=== PATIENT | female | born 1995 | race Caucasian/White ===

== ENCOUNTER → 2018-02-21 | Outpatient (CLI) | payer OTHER ==
[~2018-02-21] MED LIST: BCPILLS PO; FLUO20CA34 PO
[2018-02-21 10:57] LABS: ALBUMIN 3.9 gm/dl (3.4-5.0); TOTAL PROTEIN 6.9 gm/dl (6.4-8.2)
--- NOTE | 2018-03-03 08:53 | CODING QUERY NO DIAGNOSIS ---
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 Please assist us with providing a diagnosis/symptom for the test(s) below: A diagnosis/symptom was not documented on your Order. A valid diagnosis/symptom is required to bill all insurances. Please remember that we are unable to code a diagnosis of rule out, probable, possible, questionable, or suspected. Tests that require a diagnosis: DOS: 02/21/18 (Attached order is missing diagnosis) * Bilirubin, total & direct DIAGNOSIS: * Liver profile DIAGNOSIS: Provider Signature: Date: Thank you Teena Childers Health Information Management Once completed, please kindly fax back to [phone] For questions please call [phone]
== END | disposition home or self-care (01) ==
LOC: C.LAB 09:50
PROVIDERS: ATTEND Podiatrist Foot & Ankle Surgery
DX: L60.3 Nail dystrophy (principal)

== ENCOUNTER 2025-06-19 07:46 | Inpatient (IN) ==
[2025-06-19] MEDS ORDERED: LIDOCAINE 1% LOCAL 20 ML VIAL INFIL PRN (08:40)
[2025-06-19] MEDS ORDERED: OXYTOCIN 30 UNITS/NSS 30 UNITS/500 ML BAG IV PRN (08:40)
[2025-06-19 09:14] LABS: Hematocrit (blood only) 32.4 % (37.0-47.0); Hemoglobin 11.6 g/dL (12.0-16.0); Mean Corpuscular Hemoglobin 32.0 pg (25.0-34.0); Mean Corpuscular Volume 89.5 fL (80.0-100.0); Platelet Count 217 K/uL (130-400); RDW Standard Deviation 38.7 fL (36.4-46.3); Red Blood Count 3.62 M/uL (4.20-5.40); White Blood Count 14.56 K/ul (4.8-10.8)
--- NOTE | 2025-06-19 10:06 | History & Physical Report ---
Date of Service June 19, 2025 Assessment & Plan Admission and Anticipated Discharge Date Admission Date: June 19, 2025 History of Present Illness Chief Complaint: induction of labor Primary Care Provider: Nicole Quijano PA-C 30 F P0000 at 40.5 with induction for post-dates. GBS is negative. c ourse is uneventful. Allergies Allergy/AdvReac Type Severity Reaction Status Date / Time hydrocodone AdvReac Severe Nausea Unverified 06/19/25 08:17 anesthesia AdvReac Severe Nausea Uncoded 06/19/25 08:17 Home Medications Medication Instructions Recorded Confirmed Type citalopram 20 mg tablet 30 mg PO HS 03/23/19 06/19/25 History montelukast 10 mg tablet 10 mg PO HS 03/23/19 06/19/25 History (Singulair) trazodone 150 mg tablet 50 mg PO HS 03/23/19 06/19/25 History doxylamine succinate 25 mg tablet 12.5 mg PO HS PRN sleep 06/19/25 06/19/25 History (Unisom (doxylamine)) Patient History Medical History Depression Anxiety Surgical History H/O breast augmentation H/O nasal septoplasty Social History Smoking Status: Never smoker Hx Alcohol Use: No Hx Substance Use: No Preferred Language: Latvian Communication Ability: Effective Visual Impairment: No Limitations Hearing Ability: Normal Lens Edger Required: No Beliefs That Will Affect Care: None marital status: Current Living Situation: Spouse Other Information That Helps Us Care for You: No Feels Safe at Home: Yes Safety Concerns: Feels Safe At This Time 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 History neg Review of Systems All systems reviewed & are unremarkable except as noted in HPI & below Physical Exam Constitutional: WD/WN, vitals as above Eyes: PERRL, conjunctivae normal, anicteric sclerae Respiratory: normal respiratory effort Cardiovascular: Rate/Rhythm: regular rate and regular rhythm Gastrointestinal (Abdomen): Inspection/Auscultation: abdomen normal to inspection fundus term no pain Musculoskeletal: Extremities: extremities normal to inspection Skin: no rashes, warm and dry no edema Neurologic: patellar DTR's 2+ bilat, sensation intact Psychiatric: A+Ox3, euthymic affect Genitourinary: Manual OB Exam: + cervical dilation fingertip, + cervical effacement 50% and + station high OB Exam Monitor Tracing: + external FHT monitor used, + external uterine monitor used, + category I and + normal FHT variability Cervix posterior/firm EFW 8.5 lbs. Cervidil placed for ripening after discussion with patient Results & Data Vital Signs (Past 12 Hours) Vital Signs Temp Pulse Resp BP 06/19/25 08:04 36.9 C 81 20 121/75 Code Status & VTE Plan VTE Prophylaxis Plan VTE Prophylaxis will be ordered: No Monitoring External Monitor Cat 1
[2025-06-19] MEDS: DINOPROSTONE 10 MG INSERT PV ONE (10:21)
[2025-06-19] MEDS: ACETAMINOPHEN 325 MG TAB PO PRN (18:59)
[2025-06-19] MEDS: LACTATED RINGER'S 1,000 ML IV PRN (19:38)
[2025-06-19] MEDS: BUTORPHANOL TARTRATE 1 MG/ML VIAL IV PRN (20:53)
[2025-06-19] MEDS: ONDANSETRON INJ 2 MG/ML 2 ML VIAL IV PRN (21:25)
--- NOTE | 2025-06-19 22:09 | Labor Progress Brief Note ---
Date of Service June 19, 2025 Assessment & Plan Admission and Anticipated Discharge Date Admission Date: June 19, 2025 Physical Exam Genitourinary: Manual OB Exam: + cervical dilation 2 cm, + cervical effacement 70% and + station high OB Exam Monitor Tracing: + external FHT monitor used, + external uterine monitor used, + category I and + normal FHT variability Cervidil removed plan for epidural then either Cytotec or Oxytocin Results & Data Vital Signs (Past 12 Hours) Vital Signs Temp Pulse Resp BP 06/19/25 19:10 36.8 C 18 06/19/25 19:10 18 06/19/25 19:10 36.8 C 18 06/19/25 19:03 77 06/19/25 19:03 136/83 06/19/25 15:06 20 06/19/25 15:06 37.0 C 20 06/19/25 15:06 76 06/19/25 15:06 117/62 06/19/25 11:55 75 06/19/25 11:55 130/80 06/19/25 11:54 19 06/19/25 11:54 36.9 C 19
[2025-06-20] MEDS: OXYTOCIN 30 UNITS/NSS 30 UNITS/500 ML BAG IV PRN (00:09)
[2025-06-20] MEDS: ZOLPIDEM TARTRATE 5 MG TAB PO ONE (01:10)
[2025-06-20] MEDS ORDERED: Nursing to Pharmacy Communication SCH (10:45)
--- NOTE | 2025-06-20 12:02 | Anesthesiology Consultation ---
Date of Service June 20, 2025 Assessment & Plan Chart Review Chart Review: Acceptable Risk for Surgery and Patient NOT seen in Pre Admission Testing Consults Requested none ASA ASA2 Proposed Anesthesia Anesthesia Type: Labor Epidural and CSE Risk / Benefits Reviewed With: PT / POA / Parent / Guardian, Accepts Plan and Informed Consent Obtained History Height/Weight Height: 5 ft 3 in Weight: 83.007 kg Allergies Allergy/AdvReac Type Severity Reaction Status Date / Time hydrocodone AdvReac Severe Nausea Unverified 06/19/25 08:17 anesthesia AdvReac Severe Nausea Uncoded 06/19/25 08:17 Medications Home Medications Medication Instructions Recorded Confirmed Last Taken citalopram 20 mg tablet 30 mg PO HS 03/23/19 06/19/25 06/18/25 21:00 montelukast 10 mg tablet 10 mg PO HS 03/23/19 06/19/25 03/22/19 (Singulair) trazodone 150 mg tablet 50 mg PO HS 03/23/19 06/19/25 06/18/25 21:00 doxylamine succinate 25 mg tablet 12.5 mg PO HS PRN sleep 06/19/25 06/19/25 06/18/25 21:00 (Unisom (doxylamine)) Active Medications Generic Name Dose Route Start Last Admin Trade Name Freq PRN Reason Stop Dose Admin Acetaminophen 650 mg 06/19/25 18:46 06/19/25 18:59 Acetaminophen 325 Mg Tab PO 07/19/25 18:45 650 mg Q4H PRN Administration Pain Butorphanol Tartrate 1 mg 06/19/25 20:39 06/19/25 20:53 Butorphanol Tartrate 1 Mg/Ml Vial IV 07/19/25 20:38 1 mg Q2HWA PRN Administration Pain Lactated Ringer's 1,000 mls @ 125 mls/hr 06/19/25 08:40 06/20/25 11:42 Lr IV 06/21/25 08:39 999 mls/hr .Q8H PRN Administration L&D Protocol Protocol Oxytocin 30 units in 500 mls @ 21 mls/hr 06/19/25 23:19 06/20/25 10:30 Pitocin 30 Units/Nss IV 06/21/25 23:18 1.26 units/hr .[id number] PRN 21 mls/hr Labor Induction/Augmentation Titration Protocol 1.26 UNITS/HR Ondansetron HCl 4 mg 06/19/25 21:15 06/19/25 21:25 Ondansetron Inj 2 Mg/Ml 2 Ml Vial IV 07/19/25 21:14 4 mg Q6H PRN Administration Nausea And Vomiting NPO Date Last Intake of Fluids: 06/20/25 Time Last Intake of Fluids: 11:00 Date Last Intake of Solids: 06/19/25 Time Last Intake of Solids: 18:00 Past Medical History Medical History Depression Anxiety Exercise / Class Metabolic Activity II 4-5 Yardwork/Stairs/Walk up hill Past Surgical History Surgical History H/O breast augmentation H/O nasal septoplasty Past Anesthesia History No Hx of Anesthesia Complications and No Family Hx of Anesthesia Complications History of PONV No Hx of PONV and No Hx of Motion Sickness Social History Smoking Status: Never smoker Hx Alcohol Use: No Hx Substance Use: No Physical Exam Vital Signs Last Vital Signs Temp 36.9 C 06/20/25 11:02 Pulse 75 06/20/25 11:56 Resp 19 06/20/25 11:02 BP 124/77 06/20/25 11:03 Pulse Ox 98 06/20/25 11:56 Constitutional + obese; no acute distress ENMT Mouth: no dentition abnormality Thyromental Distance: < 3.5 Finger Breadths Mallampati Class: II Neck normal visual inspection and trachea midline; neck extension not limited Respiratory normal respiratory effort Auscultation: lungs clear to auscultation bilaterally Cardiovascular Rate/Rhythm: regular rate and regular rhythm Heart Sounds: no murmur Vessels: no carotid bruit Musculoskeletal Spine: lumbar spine normal to inspection; normal cervical ROM and no pain with cervical ROM Extremities: full ROM of extremities Neurologic moves all extremities Motor/Sensory: no sensory deficit Psychiatric Orientation: alert and oriented x 3 Testing Laboratory Results 06/19/25 08:57
[2025-06-20] MEDS ORDERED: NALOXONE HCL 0.4 MG/1 ML VIAL/CARP IV PRN (12:49)
[2025-06-20] MEDS ORDERED: ROPIVACAINE 0.5% PF 5 MG/ML 20 ML VIAL EPI PRN (12:49)
[2025-06-20] MEDS ORDERED: BUPIVACAINE 0.25% PF 30 ML VIAL EPI PRN (12:49)
[2025-06-20] MEDS ORDERED: PROMETHAZINE 6.25 MG/50.25 ML BAG IV PRN (12:49)
[2025-06-20] MEDS ORDERED: LIDOCAINE 2% MPF LOCAL 5 ML VIAL EPI PRN (12:49)
[2025-06-20] MEDS ORDERED: diphenhydrAMINE 50 MG/ML VIAL IV PRN (12:49)
[2025-06-20] MEDS: LIDOCAINE 2%/EPINEPHRINE 1:200,000 20 ML PF ONE (12:49)
[2025-06-20] MEDS: BUPIVACAINE 0.25% PF 30 ML VIAL ONE (12:49)
[2025-06-20] MEDS ORDERED: NALOXONE HCL 1 MG in SODIUM CHLORIDE 0.9% 1,000 ML IV PRN (12:49)
[2025-06-20] MEDS ORDERED: SODIUM CHLORIDE 0.9% PF INJ 10 ML VIAL EPI PRN (12:49)
[2025-06-20] MEDS ORDERED: NALBUPHINE HCL INJ 10 MG/ML AMP IV PRN (12:49)
[2025-06-20] MEDS: fentANYL 2 MCG/ML BUPIVacaine 0.125%-NSS 100ML BAG ONE (12:51)
[2025-06-20] MEDS: SODIUM CHLORIDE 0.9% PF INJ 10 ML VIAL ONE (12:52)
[2025-06-20] MEDS: ONDANSETRON INJ 2 MG/ML 2 ML VIAL IV PRN (14:04)
[2025-06-20] MEDS: BUPIVACAINE 0.25% PF 30 ML VIAL EPI STA (20:07)
[2025-06-20] MEDS: LIDOCAINE 2%/EPINEPHRINE 1:200,000 20 ML PF EPI STA (20:08)
[2025-06-20] MEDS: SODIUM CHLORIDE 0.9% PF INJ 10 ML VIAL EPI STA (20:08)
[2025-06-20] MEDS: fentANYL 2 MCG/ML BUPIVacaine 0.125%-NSS 100ML BAG EPI PRN (20:30)
[2025-06-21] MEDS ORDERED: MoRPHine SULFATE PF 1 MG/ML 10 ML AMP/VIAL ONE (01:17)
[2025-06-21] MEDS ORDERED: LIDOCAINE 2%/EPINEPHRINE 1:200,000 20 ML PF ONE (01:17)
[2025-06-21] MEDS: cefOXitin 2,000 MG in DEXTROSE 5 % MINI-B 50 ML IV SCH (01:25)
[2025-06-21] MEDS ORDERED: PHENYLEPHRINE 100MCG/ML 5ML SYR ONE (01:29)
[2025-06-21] MEDS ORDERED: SODIUM BICARB 8.4% INJ 50 MEQ/50 ML SYR IV ONE (01:29)
[2025-06-21] MEDS ORDERED: DEXAMETHASONE SOD INJ 4 MG/ML VIAL ONE (01:29)
[2025-06-21] MEDS ORDERED: ONDANSETRON INJ 2 MG/ML 2 ML VIAL ONE (01:29)
--- NOTE | 2025-06-21 01:29 | History & Physical Report ---
Date of Service June 21, 2025 Assessment & Plan (1) Macrosomia affecting management of mother in third trimester, single gestation: Plan: delivery Admission and Anticipated Discharge Date Admission Date: June 19, 2025 History of Present Illness Chief Complaint: Intrauterine 41 weeks gestation Macrosomia Failed induction of labor Cephalopelvic disproportion Primary Care Provider: Nicole Quijano PA-C Patient is a 30-year-old 1 para 0. Followed in the office for care and delivery. Well dated with a first trimester ultrasound. Her due date is 06/14/2025. She had a history of anemia during her which was treated with iron infusion. She was ultrasounded at 36 weeks gestation and at that time they gave her an estimated weight of 7 pounds 10 ounces. Brought in for induction of labor due to her being postterm. She first had a Cervidil tape. Followed by IV Pitocin. She was about 4 cm dilated she received epidural for pain control. Membranes then ruptured spontaneously. Fluid was clear. She was augmented with IV Pitocin and increasing the dose to get a regular contraction pattern. She had a an anterior cervical lip for which we let her labor for about 5 hours to clear. She then pushed for over 2 hours. Was unable to even get the head into the mid pelvis. At the time of her C- section the station is a -2 to -3. Large amount of molding. Allergies Allergy/AdvReac Type Severity Reaction Status Date / Time hydrocodone AdvReac Severe Nausea Unverified 06/19/25 08:17 anesthesia AdvReac Severe Nausea Uncoded 06/19/25 08:17 Home Medications Medication Instructions Recorded Confirmed Type citalopram 20 mg tablet 30 mg PO HS 03/23/19 06/19/25 History montelukast 10 mg tablet 10 mg PO HS 03/23/19 06/19/25 History (Singulair) trazodone 150 mg tablet 50 mg PO HS 03/23/19 06/19/25 History doxylamine succinate 25 mg tablet 12.5 mg PO HS PRN sleep 06/19/25 06/19/25 History (Unisom (doxylamine)) Past Med/Surg History Problem List (Updated 06/21/25 @ 01:28 by Vidal Malagon MD) Macrosomia affecting management of mother in third trimester, single gestation Medical History Depression Anxiety Surgical History H/O breast augmentation H/O nasal septoplasty Social History Smoking Status: Never smoker Hx Alcohol Use: No Hx Substance Use: No Preferred Language: Serbian Communication Ability: Effective Visual Impairment: No Limitations Hearing Ability: Normal Production Operator Required: No Beliefs That Will Affect Care: None marital status: Current Living Situation: Spouse Other Information That Helps Us Care for You: No Feels Safe at Home: Yes Safety Concerns: Feels Safe At This Time Physical Exam Physical Exam: Patient appeared to be well-developed well-nourished 30-year-old white female alert oriented x 3 operative. Her stated age in a moderate amount of distress. Heart had a regular rhythm S1 and S2 were normal. Lungs are clear to auscultation percussion. Trachea was midline there is no cervical adenopathy. Both breasts are status post augmentation. Abdomen revealed a large gravid uterus with an estimated weight of well over 8 pounds. There was no CVA tenderness. Pelvic exam revealed a large amount of molding station was -2 to - 3. Vertex presentation. No calf tenderness. Results & Data Results & Data Vital Signs (Past 12 Hours) Vital Signs Temp Pulse Resp BP Pulse Ox 06/21/25 01:21 109 H 87 L 06/21/25 01:18 100 H 91 06/21/25 01:13 90 98 06/21/25 01:12 83 123/75 06/21/25 01:10 89 83 L 06/21/25 01:08 80 97 06/21/25 01:03 75 74 L 06/21/25 01:02 76 79 L 06/21/25 00:58 80 96 06/21/25 00:57 72 130/77 06/21/25 00:53 85 96 06/21/25 00:49 88 86 L 06/21/25 00:48 86 98 06/21/25 00:43 89 95 06/21/25 00:42 86 82 L 06/21/25 00:38 87 97 06/21/25 00:35 90 81 L 06/21/25 00:33 88 98 06/21/25 00:32 90 134/78 06/21/25 00:27 84 97 06/21/25 00:22 82 97 06/21/25 00:17 94 H 99 06/21/25 00:12 90 99 06/21/25 00:10 85 89 L 06/21/25 00:07 87 98 06/21/25 00:06 90 127/73 06/21/25 00:04 98 H 90 06/21/25 00:02 92 H 73 L 06/20/25 23:58 94 H 90 06/20/25 23:57 90 98 06/20/25 23:52 113 H 83 L 06/20/25 23:49 104 H 87 L 06/20/25 23:47 104 H 94 06/20/25 23:44 89 89 L 06/20/25 23:42 104 H 96 06/20/25 23:37 82 73 L 06/20/25 23:32 100 H 98 06/20/25 23:31 89 81 L 06/20/25 23:27 92 H 96 06/20/25 23:26 89 87 L 06/20/25 23:22 83 98 06/20/25 23:20 87 87 L 06/20/25 23:17 78 100 06/20/25 23:12 72 100 06/20/25 23:11 69 139/84 06/20/25 23:07 71 100 06/20/25 23:03 72 89 L 06/20/25 23:02 71 100 06/20/25 22:57 78 92 06/20/25 22:56 71 136/77 06/20/25 22:52 74 98 06/20/25 22:50 37.0 C 06/20/25 22:47 72 99 06/20/25 22:42 83 94 06/20/25 22:40 88 93 06/20/25 22:37 69 99 06/20/25 22:32 74 100 06/20/25 22:28 76 92 06/20/25 22:27 74 97 06/20/25 22:26 70 142/83 H 06/20/25 22:22 73 99 06/20/25 22:19 75 93 06/20/25 22:17 70 100 06/20/25 22:12 70 94 06/20/25 22:11 67 117/70 06/20/25 22:07 66 100 06/20/25 22:06 67 92 06/20/25 22:02 70 99 06/20/25 21:57 69 100 06/20/25 21:56 69 120/63 06/20/25 21:52 70 98 06/20/25 21:50 72 90 06/20/25 21:47 69 100 06/20/25 21:45 71 91 06/20/25 21:42 68 100 06/20/25 21:41 66 129/79 06/20/25 21:37 74 97 06/20/25 21:34 80 87 L 06/20/25 21:32 73 93 06/20/25 21:28 76 92 06/20/25 21:27 73 100 06/20/25 21:26 73 137/74 06/20/25 21:23 79 94 06/20/25 21:22 74 95 06/20/25 21:17 73 100 06/20/25 21:12 75 100 06/20/25 21:11 74 138/82 06/20/25 21:07 75 100 06/20/25 21:06 80 90 06/20/25 21:02 77 99 06/20/25 20:57 79 121/77 92 06/20/25 20:52 66 98 06/20/25 20:47 65 98 06/20/25 20:43 69 91 06/20/25 20:42 63 114/62 98 06/20/25 20:37 65 99 06/20/25 20:32 67 100 06/20/25 20:30 36.9 C 06/20/25 20:27 79 118/62 100 06/20/25 20:22 72 97 06/20/25 20:21 72 94 06/20/25 20:17 70 97 06/20/25 20:13 68 124/79 06/20/25 20:12 72 97 06/20/25 20:07 74 93 06/20/25 20:02 71 98 06/20/25 19:57 75 134/78 98 06/20/25 19:53 85 93 06/20/25 19:52 73 100 06/20/25 19:47 79 99 06/20/25 19:46 72 94 06/20/25 19:42 81 99 06/20/25 19:41 74 132/79 06/20/25 19:37 79 99 06/20/25 19:32 83 91 06/20/25 19:27 68 100 06/20/25 19:26 72 112/62 06/20/25 19:22 69 99 06/20/25 19:17 68 100 06/20/25 19:12 66 100 06/20/25 19:11 63 115/65 06/20/25 19:07 70 100 06/20/25 19:02 71 100 06/20/25 19:00 36.8 C 20 06/20/25 18:57 76 100 06/20/25 18:56 71 137/84 06/20/25 18:53 73 92 06/20/25 18:52 68 96 06/20/25 18:47 73 100 06/20/25 18:44 73 90 06/20/25 18:42 68 100 06/20/25 18:41 72 128/83 06/20/25 18:37 76 97 06/20/25 18:34 88 92 06/20/25 18:32 92 H 100 06/20/25 18:30 18 06/20/25 18:30 18 06/20/25 18:27 73 127/74 100 06/20/25 18:22 75 99 06/20/25 18:17 79 98 06/20/25 18:14 77 93 06/20/25 18:12 77 132/78 100 06/20/25 18:08 88 94 06/20/25 18:07 80 100 06/20/25 18:02 84 100 06/20/25 18:01 83 91 06/20/25 17:59 19 06/20/25 17:59 19 06/20/25 17:58 62 20 125/72 06/20/25 17:57 63 100 06/20/25 17:52 71 100 06/20/25 17:48 71 92 06/20/25 17:47 73 100 06/20/25 17:42 68 100 06/20/25 17:41 64 121/62 06/20/25 17:37 67 100 06/20/25 17:36 64 91 06/20/25 17:32 72 100 06/20/25 17:30 18 06/20/25 17:30 18 06/20/25 17:27 67 100 06/20/25 17:26 62 121/66 06/20/25 17:22 65 100 06/20/25 17:17 69 96 06/20/25 17:12 64 96 06/20/25 17:11 64 125/68 06/20/25 17:07 74 100 06/20/25 17:05 36.7 C 20 06/20/25 17:02 69 100 06/20/25 16:58 64 91 06/20/25 16:57 65 100 06/20/25 16:56 62 121/80 06/20/25 16:52 65 97 06/20/25 16:50 68 93 06/20/25 16:47 63 100 06/20/25 16:43 66 93 06/20/25 16:42 63 100 06/20/25 16:41 61 120/75 06/20/25 16:37 69 84 L 06/20/25 16:32 67 99 06/20/25 16:30 18 06/20/25 16:30 18 06/20/25 16:27 75 97 06/20/25 16:26 148 H 116/59 L 06/20/25 16:22 65 100 06/20/25 16:19 68 91 06/20/25 16:17 65 100 06/20/25 16:12 65 98 06/20/25 16:11 65 111/64 06/20/25 16:07 70 95 06/20/25 16:02 67 98 06/20/25 15:59 19 06/20/25 15:59 19 06/20/25 15:57 63 106/58 L 97 06/20/25 15:52 64 96 06/20/25 15:47 74 98 06/20/25 15:42 65 98 06/20/25 15:41 62 115/64 06/20/25 15:37 67 98 06/20/25 15:32 65 99 06/20/25 15:29 20 06/20/25 15:29 20 06/20/25 15:29 19 06/20/25 15:29 19 06/20/25 15:27 71 100 06/20/25 15:26 64 105/62 06/20/25 15:22 64 98 06/20/25 15:17 63 99 06/20/25 15:12 67 98 06/20/25 15:11 61 110/55 L 06/20/25 15:07 65 98 06/20/25 15:02 72 97 06/20/25 14:59 36.9 C 71 19 93 06/20/25 14:57 66 97 06/20/25 14:56 66 120/58 L 06/20/25 14:52 65 99 06/20/25 14:47 67 98 06/20/25 14:42 66 120/75 97 06/20/25 14:37 69 98 06/20/25 14:32 70 97 06/20/25 14:30 19 06/20/25 14:27 63 124/77 97 06/20/25 14:22 68 98 06/20/25 14:17 68 98 06/20/25 14:13 66 125/77 06/20/25 14:12 62 98 06/20/25 14:07 68 97 06/20/25 14:02 66 98 06/20/25 13:59 19 06/20/25 13:59 19 06/20/25 13:58 73 93 06/20/25 13:57 71 97 06/20/25 13:56 68 111/67 06/20/25 13:52 66 98 06/20/25 13:47 67 97 06/20/25 13:42 66 98 06/20/25 13:41 66 111/64 06/20/25 13:37 74 98 06/20/25 13:32 69 98 06/20/25 13:30 20 06/20/25 13:30 20 06/20/25 13:27 67 98 06/20/25 13:24 66 114/65 Code Status & VTE Plan VTE Prophylaxis Plan VTE Prophylaxis will be ordered: No
[2025-06-21] MEDS ORDERED: OXYTOCIN 10 UNITS/ML VIAL ONE ×2 (01:30→02:21)
[2025-06-21 02:01] LABS: Hematocrit (blood only) 34.0 % (37.0-47.0); Hemoglobin 11.9 g/dL (12.0-16.0); Mean Corpuscular Hemoglobin 31.8 pg (25.0-34.0); Mean Corpuscular Volume 90.9 fL (80.0-100.0); Platelet Count 180 K/uL (130-400); RDW Standard Deviation 39.6 fL (36.4-46.3); Red Blood Count 3.74 M/uL (4.20-5.40); White Blood Count 23.45 K/ul (4.8-10.8)
[2025-06-21] MEDS ORDERED: PROMETHAZINE HCL INJ 25 MG/ML 1 ML VIAL ONE (02:14)
[2025-06-21] MEDS ORDERED: PHENYLEPHRINE HCL 10 MG/ML VIAL ONE (02:28)
[2025-06-21] MEDS ORDERED: LACTATED RINGER'S 1,000 ML IV SCH (02:30)
[2025-06-21] MEDS ORDERED: LACTATED RINGER'S 500 ML IV PRN (02:32)
[2025-06-21] MEDS ORDERED: diphenhydrAMINE 50 MG/ML VIAL IV PRN ×2 (02:32→20:32)
[2025-06-21] MEDS ORDERED: ONDANSETRON INJ 2 MG/ML 2 ML VIAL IV PRN ×2 (02:32→20:32)
[2025-06-21] MEDS ORDERED: NALBUPHINE HCL INJ 10 MG/ML AMP IV PRN (02:32)
[2025-06-21] MEDS ORDERED: HYDROmorphone INJ 0.5 MG/0.5 ML SYR IV PRN ×2 (02:32→20:32)
[2025-06-21] MEDS ORDERED: NALOXONE HCL 0.4 MG/1 ML VIAL/CARP IV PRN (02:32)
[2025-06-21] MEDS ORDERED: PROMETHAZINE 6.25 MG/50.25 ML BAG IV PRN (02:32)
[2025-06-21] MEDS ORDERED: NALOXONE HCL 1 MG in SODIUM CHLORIDE 0.9% 1,000 ML IV PRN (02:32)
[2025-06-21] MEDS ORDERED: KETOROLAC 30 MG/ML VIAL ONE (02:43)
[2025-06-21] MEDS ORDERED: NO NARCOTICS OR SEDATIVES SCH (02:45)
[2025-06-21] MEDS ORDERED: DC INTRASPINAL MORPHINE SCH (02:45)
[2025-06-21] MEDS ORDERED: SENNA 8.6 MG TAB PO PRN (03:04)
[2025-06-21] MEDS ORDERED: BENZOCAINE 20% SPRY 85 APPLN/85 GM CAN EXT PRN (03:04)
[2025-06-21] MEDS ORDERED: MAGNESIUM HYDROXIDE SUSP 30 ML UDC PO PRN (03:04)
[2025-06-21] MEDS ORDERED: CALCIUM CARBONATE 500 MG CHEWABLE TAB PO PRN (03:04)
[2025-06-21] MEDS ORDERED: HYDROCORTISONE ACETATE 25 MG SUPP PR PRN (03:04)
--- NOTE | 2025-06-21 03:13 | Anesthesia Procedure Note ---
Date of Service June 21, 2025 Anesthesia Post Epidural Note Vital Signs Vital Signs: Temp Pulse Resp BP Pulse Ox 98.6 F 69 20 95/46 L 91 06/20/25 22:50 06/21/25 03:12 06/20/25 19:00 06/21/25 03:09 06/21/25 03:12 Pain Intensity Abdomen: Pain Intensity: 2 Notes Mental Status: alert / awake / arousable and participated in evaluation Nausea / Vomiting: adequately controlled Pain: adequately controlled Airway Patency, RR, SpO2: stable & adequate BP & HR: stable & adequate Hydration State: stable & adequate Neuraxial Anesthesia: was administered and sensory block is resolving Anesthetic Complications: no major complications apparent and Pt Satisfied with anesthetic care Epidural: Removed without complications and With tip intact
--- NOTE | 2025-06-21 03:14 | Operative Report ---
Post Operative Report Pre & Post Diagnosis Operation Date: 06/21/25 01:30 Pre-Op Diagnosis: 1.) Arrest of Labor 2.) Cephalopelvic Disproportion Post-Op Diagnosis: Same as pre op I identified the patient and participated in the time-out.: Yes Procedure Operation Date: 06/21/25 01:30 Actual Procedures p Primary Section for the of a live male child at 0216. 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 Catheter was reinserted and connected to gravity drainage. Lower abdomen was painted with an alcohol-based sterilizing solution. Epidural was topped off. After draping the patient in usual sterile fashion the level anesthesia was checked and found to be adequate. Pfannenstiel incision was made and carried down to the anterior fascia by sharp dissection. Hemostasis was secured by electrocauterization. Fascia was incised transversely from the underlying muscle by blunt and sharp dissection. Recti muscles were in the midline. Peritoneum was carefully raised and entered. A bladder retractor was used to expose the lower uterine segment. The peritoneum on the uterus was incised and the incision was carried out laterally. Bladder was undermined bluntly and pushed out of the operative field. Lower uterine segment was scored with a knife and then entered bluntly with the scissors. Amniotic fluid was slightly meconium stained. Operators hand was inserted into the uterine cavity and then into the pelvis. I grasped the head started to pull it out of the pelvis. I tried using a pectus retractor. However the head then turned sideways. I remove the pectus retractor we inserted my hand and was able to deliver the vertex through the incision. With fundal pressure the 's arms abdomen and then legs were removed without difficulty. Cord was allowed to pulse for 1 minute. Cord was then clamped. was handed off to the fig caprifier who is scrubbed and present at the time of the delivery. Cord blood was taken. Placenta was removed manually. Uterus tubes and ovaries were brought out through the incision. The extent of the lower uterine defect was delineated with 4 ring forceps. The muscular layer was then approximated with a continuous interlocking suture of heavy chromic gut suture. Then a horizontal suture of heavy Vicryl was approximated over this to approximate the fascial layer over the approximated muscular layer 1 interrupted [id number] suture of Vicryl was placed on the left side to complete the hemostasis. Peritoneal edges were then restored with a continuous plain suture and this restored the integrity of the vesicouterine fold. Uterus was cleansed of all blood clots and debris. Tubes and ovaries were inspected found to be normal. Uterus tubes and ovaries were reinserted into the abdominal cavity. Careful anatomical approximation of the anterior abdominal wall was performed. Peritoneum was closed with continuous Chromic Gut suture. Recti muscles were approximated with interrupted [id number] suture chromic catgut. Fascia was closed with a continuous interlocking suture of heavy Vicryl on each side and run to the middle. The subcutaneous tissue was cleansed with saline then approximated with a running plain. Skin edges were approximated with staple clips. Patient tolerated procedure well. Quantitative blood loss was 930 mL I attest to the content of the Intraoperative Record and any orders documented therein. Any exceptions are noted below.
--- NOTE | 2025-06-21 03:30 | Anesthesiology Progress Note ---
Date of Service June 21, 2025 Anesthesia Post Procedure Vital Signs Vital Signs: Temp Pulse Resp BP Pulse Ox 06/21/25 03:27 65 98 06/21/25 03:22 66 98 06/21/25 03:20 12 06/21/25 03:20 64 95/47 L 06/21/25 03:17 67 100 06/21/25 03:15 70 87/43 L 06/21/25 03:12 69 91 06/21/25 03:10 99.0 F 14 06/21/25 03:09 67 95/46 L 06/21/25 01:48 85 96 06/21/25 01:43 81 96 06/21/25 01:42 77 113/67 06/21/25 01:38 83 96 06/21/25 01:33 88 94 06/21/25 01:28 86 98 06/21/25 01:26 90 125/75 06/21/25 01:23 95 H 91 06/21/25 01:21 109 H 87 L 06/21/25 01:18 100 H 91 06/21/25 01:13 90 98 06/21/25 01:12 83 123/75 06/21/25 01:10 89 83 L 06/21/25 01:08 80 97 06/21/25 01:03 75 74 L 06/21/25 01:02 76 79 L 06/21/25 00:58 80 96 06/21/25 00:57 72 130/77 06/21/25 00:53 85 96 06/21/25 00:49 88 86 L 06/21/25 00:48 86 98 06/21/25 00:43 89 95 06/21/25 00:42 86 82 L 06/21/25 00:38 87 97 06/21/25 00:35 90 81 L 06/21/25 00:33 88 98 06/21/25 00:32 90 134/78 06/21/25 00:27 84 97 06/21/25 00:22 82 97 06/21/25 00:17 94 H 99 06/21/25 00:12 90 99 06/21/25 00:10 85 89 L 06/21/25 00:07 87 98 06/21/25 00:06 90 127/73 06/21/25 00:04 98 H 90 06/21/25 00:02 92 H 73 L 06/20/25 23:58 94 H 90 06/20/25 23:57 90 98 06/20/25 23:52 113 H 83 L 06/20/25 23:49 104 H 87 L 06/20/25 23:47 104 H 94 06/20/25 23:44 89 89 L 06/20/25 23:42 104 H 96 06/20/25 23:37 82 73 L 06/20/25 23:32 100 H 98 06/20/25 23:31 89 81 L 06/20/25 23:27 92 H 96 06/20/25 23:26 89 87 L 06/20/25 23:22 83 98 06/20/25 23:20 87 87 L 06/20/25 23:17 78 100 06/20/25 23:12 72 100 06/20/25 23:11 69 139/84 06/20/25 23:07 71 100 06/20/25 23:03 72 89 L 06/20/25 23:02 71 100 06/20/25 22:57 78 92 06/20/25 22:56 71 136/77 06/20/25 22:52 74 98 06/20/25 22:50 98.6 F 06/20/25 22:47 72 99 06/20/25 22:42 83 94 06/20/25 22:40 88 93 06/20/25 22:37 69 99 06/20/25 22:32 74 100 06/20/25 22:28 76 92 06/20/25 22:27 74 97 06/20/25 22:26 70 142/83 H 06/20/25 22:22 73 99 06/20/25 22:19 75 93 06/20/25 22:17 70 100 06/20/25 22:12 70 94 06/20/25 22:11 67 117/70 06/20/25 22:07 66 100 06/20/25 22:06 67 92 06/20/25 22:02 70 99 06/20/25 21:57 69 100 06/20/25 21:56 69 120/63 06/20/25 21:52 70 98 06/20/25 21:50 72 90 06/20/25 21:47 69 100 06/20/25 21:45 71 91 06/20/25 21:42 68 100 06/20/25 21:41 66 129/79 06/20/25 21:37 74 97 06/20/25 21:34 80 87 L 06/20/25 21:32 73 93 06/20/25 21:28 76 92 06/20/25 21:27 73 100 06/20/25 21:26 73 137/74 06/20/25 21:23 79 94 06/20/25 21:22 74 95 06/20/25 21:17 73 100 06/20/25 21:12 75 100 06/20/25 21:11 74 138/82 06/20/25 21:07 75 100 06/20/25 21:06 80 90 06/20/25 21:02 77 99 06/20/25 20:57 79 121/77 92 06/20/25 20:52 66 98 06/20/25 20:47 65 98 06/20/25 20:43 69 91 06/20/25 20:42 63 114/62 98 06/20/25 20:37 65 99 06/20/25 20:32 67 100 06/20/25 20:30 98.4 F 06/20/25 20:27 79 118/62 100 06/20/25 20:22 72 97 06/20/25 20:21 72 94 06/20/25 20:17 70 97 06/20/25 20:13 68 124/79 06/20/25 20:12 72 97 06/20/25 20:07 74 93 06/20/25 20:02 71 98 06/20/25 19:57 75 134/78 98 06/20/25 19:53 85 93 06/20/25 19:52 73 100 06/20/25 19:47 79 99 06/20/25 19:46 72 94 06/20/25 19:42 81 99 06/20/25 19:41 74 132/79 06/20/25 19:37 79 99 06/20/25 19:32 83 91 06/20/25 19:27 68 100 06/20/25 19:26 72 112/62 06/20/25 19:22 69 99 06/20/25 19:17 68 100 06/20/25 19:12 66 100 06/20/25 19:11 63 115/65 06/20/25 19:07 70 100 06/20/25 19:02 71 100 06/20/25 19:00 98.2 F 20 06/20/25 18:57 76 100 06/20/25 18:56 71 137/84 06/20/25 18:53 73 92 06/20/25 18:52 68 96 06/20/25 18:47 73 100 06/20/25 18:44 73 90 06/20/25 18:42 68 100 06/20/25 18:41 72 128/83 06/20/25 18:37 76 97 06/20/25 18:34 88 92 06/20/25 18:32 92 H 100 06/20/25 18:30 18 06/20/25 18:30 18 06/20/25 18:27 73 127/74 100 06/20/25 18:22 75 99 06/20/25 18:17 79 98 06/20/25 18:14 77 93 06/20/25 18:12 77 132/78 100 06/20/25 18:08 88 94 06/20/25 18:07 80 100 06/20/25 18:02 84 100 06/20/25 18:01 83 91 06/20/25 17:59 19 06/20/25 17:59 19 06/20/25 17:58 62 20 125/72 06/20/25 17:57 63 100 06/20/25 17:52 71 100 06/20/25 17:48 71 92 06/20/25 17:47 73 100 06/20/25 17:42 68 100 06/20/25 17:41 64 121/62 06/20/25 17:37 67 100 06/20/25 17:36 64 91 06/20/25 17:32 72 100 06/20/25 17:30 18 06/20/25 17:30 18 06/20/25 17:27 67 100 06/20/25 17:26 62 121/66 06/20/25 17:22 65 100 06/20/25 17:17 69 96 06/20/25 17:12 64 96 06/20/25 17:11 64 125/68 06/20/25 17:07 74 100 06/20/25 17:05 98.1 F 20 06/20/25 17:02 69 100 06/20/25 16:58 64 91 06/20/25 16:57 65 100 06/20/25 16:56 62 121/80 06/20/25 16:52 65 97 06/20/25 16:50 68 93 06/20/25 16:47 63 100 06/20/25 16:43 66 93 06/20/25 16:42 63 100 06/20/25 16:41 61 120/75 06/20/25 16:37 69 84 L 06/20/25 16:32 67 99 06/20/25 16:30 18 06/20/25 16:30 18 06/20/25 16:27 75 97 06/20/25 16:26 148 H 116/59 L 06/20/25 16:22 65 100 06/20/25 16:19 68 91 06/20/25 16:17 65 100 06/20/25 16:12 65 98 06/20/25 16:11 65 111/64 06/20/25 16:07 70 95 06/20/25 16:02 67 98 06/20/25 15:59 19 06/20/25 15:59 19 06/20/25 15:57 63 106/58 L 97 06/20/25 15:52 64 96 06/20/25 15:47 74 98 06/20/25 15:42 65 98 06/20/25 15:41 62 115/64 06/20/25 15:37 67 98 06/20/25 15:32 65 99 06/20/25 15:29 20 06/20/25 15:29 20 06/20/25 15:29 19 06/20/25 15:29 19 06/20/25 15:27 71 100 06/20/25 15:26 64 105/62 06/20/25 15:22 64 98 06/20/25 15:17 63 99 06/20/25 15:12 67 98 06/20/25 15:11 61 110/55 L 06/20/25 15:07 65 98 06/20/25 15:02 72 97 06/20/25 14:59 98.4 F 71 19 93 06/20/25 14:57 66 97 06/20/25 14:56 66 120/58 L 06/20/25 14:52 65 99 06/20/25 14:47 67 98 06/20/25 14:42 66 120/75 97 06/20/25 14:37 69 98 06/20/25 14:32 70 97 06/20/25 14:30 19 06/20/25 14:27 63 124/77 97 06/20/25 14:22 68 98 06/20/25 14:17 68 98 06/20/25 14:13 66 125/77 06/20/25 14:12 62 98 06/20/25 14:07 68 97 06/20/25 14:02 66 98 06/20/25 13:59 19 06/20/25 13:59 19 06/20/25 13:58 73 93 06/20/25 13:57 71 97 06/20/25 13:56 68 111/67 06/20/25 13:52 66 98 06/20/25 13:47 67 97 06/20/25 13:42 66 98 06/20/25 13:41 66 111/64 06/20/25 13:37 74 98 06/20/25 13:32 69 98 06/20/25 13:30 20 06/20/25 13:30 20 06/20/25 13:27 67 98 06/20/25 13:24 66 114/65 06/20/25 13:22 68 98 06/20/25 13:18 67 110/66 06/20/25 13:17 68 98 06/20/25 13:13 67 117/67 06/20/25 13:12 76 97 06/20/25 13:10 71 110/66 06/20/25 13:07 73 98 06/20/25 13:03 72 119/73 06/20/25 13:02 71 98 06/20/25 13:01 72 118/73 06/20/25 13:00 17 06/20/25 13:00 98.6 F 17 06/20/25 12:59 74 16 121/79 06/20/25 12:57 77 114/74 98 06/20/25 12:55 74 116/70 06/20/25 12:53 73 117/73 06/20/25 12:52 72 98 06/20/25 12:51 71 120/74 06/20/25 12:49 74 120/74 06/20/25 12:47 75 06/20/25 12:47 77 121/76 98 06/20/25 12:42 77 97 06/20/25 12:41 80 94 06/20/25 12:37 79 97 06/20/25 12:32 79 99 06/20/25 12:27 78 99 06/20/25 12:22 83 92 06/20/25 12:16 84 98 06/20/25 12:11 79 99 06/20/25 12:06 81 99 06/20/25 12:01 75 99 06/20/25 12:00 74 123/74 06/20/25 11:56 75 98 06/20/25 11:03 81 124/77 06/20/25 11:02 19 06/20/25 11:02 98.4 F 19 06/20/25 10:00 73 127/74 06/20/25 09:00 72 113/65 06/20/25 08:01 70 118/76 06/20/25 06:58 80 130/69 06/20/25 06:57 17 06/20/25 06:57 98.1 F 17 06/20/25 05:28 98.2 F 87 18 121/80 06/20/25 03:30 18 06/20/25 03:30 18 Pain Intensity Abdomen: Pain Intensity: 2 Transfer of Care Handoff Completed per policy Notes Mental Status: alert / awake / arousable and participated in evaluation Patient Amnestic to Procedure: Yes Nausea / Vomiting: adequately controlled Pain: adequately controlled Airway Patency, RR, SpO2: stable & adequate BP & HR: stable & adequate Hydration State: stable & adequate Neuraxial Anesthesia: was administered and sensory block is resolving Anesthetic Complications: no major complications apparent and Pt Satisfied with anesthetic care
[2025-06-21] MEDS: OXYTOCIN 20 UNITS/LR 1,002 ML IV SCH (06:27)
[2025-06-21] MEDS ORDERED: SODIUM CHLORIDE 0.9% 100 ML IV PRN (06:45)
[2025-06-21] MEDS: ACETAMINOPHEN 500 MG TAB PO SCH (07:01)
[2025-06-21] MEDS: DIPHTHER/TETAN/PERTUS Vaccine (Tdap, Adol/Adult) 0.5mL IM ONE (07:01)
[2025-06-21] MEDS: LACTATED RINGER'S 1,000 ML IV SCH ×2 (07:01→22:23)
[2025-06-21] MEDS: DOCUSATE SODIUM 100 MG CAP PO SCH (08:47)
[2025-06-21] MEDS: PRENATAL VITAMIN 1 TAB PO SCH (08:47)
[2025-06-21] MEDS: FERROUS SULFATE 325 MG TAB PO SCH (08:47)
[2025-06-21] MEDS: ACETAMINOPHEN 325 MG TAB PO SCH (09:03)
[2025-06-21] MEDS: KETOROLAC 30 MG/ML VIAL IV SCH (09:03)
[2025-06-21] MEDS: SIMETHICONE 80 MG CHEW PO SCH (09:03)
[2025-06-21] MEDS: NALOXONE HCL 0.08 MG in SYRINGE 1.8 ML IV PRN (19:37)
[2025-06-21] MEDS ORDERED: PROMETHAZINE 12.5 MG/50.5 ML BAG IV PRN (20:32)
[2025-06-21] MEDS ORDERED: ZOLPIDEM TARTRATE 5 MG TAB PO PRN (20:32)
[2025-06-21] MEDS: diphenhydrAMINE Capsule 25 MG CAP PO PRN (21:06)
[2025-06-21] MEDS: MoRPHine SULFATE PF 1 MG/ML 10 ML AMP/VIAL EPI ONE (22:23)
[2025-06-21] MEDS: SODIUM CHLORIDE 0.9% 1,000 ML IV SCH (22:23)
[2025-06-21] MEDS: CITRIC ACID/SODIUM CITRATE 15 ML UDC PO SCH (22:23)
[2025-06-21] MEDS: CITALOPRAM 20 MG TAB PO SCH (22:29)
[2025-06-22] MEDS ORDERED: KETOROLAC 30 MG/ML VIAL IV PRN (03:05)
[2025-06-22] MEDS: IBUPROFEN 600 MG TAB PO SCH (03:40)
[2025-06-22 07:01] LABS: Hematocrit (blood only) 21.0 % (37.0-47.0); Hemoglobin 7.4 g/dL (12.0-16.0); Mean Corpuscular Hemoglobin 32.5 pg (25.0-34.0); Mean Corpuscular Volume 92.1 fL (80.0-100.0); Platelet Count 167 K/uL (130-400); RDW Standard Deviation 40.9 fL (36.4-46.3); Red Blood Count 2.28 M/uL (4.20-5.40); White Blood Count 19.25 K/ul (4.8-10.8)
[2025-06-22 07:30] LABS: Immature Granulocytes # (auto) 0.19 K/uL (0.01-0.20); Immature Granulocytes % (auto) 1.0 %; RBC Morphology Unremarkable
--- NOTE | 2025-06-22 09:03 | Obstetrical Progress Note ---
Date of Service June 22, 2025 Assessment & Plan Admission and Anticipated Discharge Date Admission Date: June 19, 2025 Subjective abdomen soft and non tender bowel sounds normal passing gas no calf tenderness ambulating well vaginal bleeding scant hgb 7.4 Results & Data Vital Signs (Past 12 Hours) Vital Signs Temp Pulse Resp BP Pulse Ox O2 Del Method 06/22/25 07:50 36.7 C 89 20 126/72 98 Room Air 06/21/25 23:42 36.5 C 80 16 119/71 98 Room Air
[2025-06-22] MEDS ORDERED: Nursing to Pharmacy Communication SCH (12:15)
[2025-06-23 00:27] VITALS: O2SAT 96
[2025-06-23] MEDS ORDERED: Nursing to Pharmacy Communication SCH (03:30)
[2025-06-23] MEDS: IBUPROFEN 600 MG TAB PO PRN (05:52)
[2025-06-23] MEDS: ACETAMINOPHEN 325 MG TAB ONE (06:10)
[2025-06-23 08:06] LABS: Hematocrit (blood only) 23.9 % (37.0-47.0); Hemoglobin 8.2 g/dL (12.0-16.0)
[2025-06-23] MEDS ORDERED: ACETAMINOPHEN 325 MG TAB PO PRN (09:05)
[2025-06-23 09:23] VITALS: BP 110/71; PULSE 80; RESP 21; TEMP 98.2
--- NOTE | 2025-06-23 11:30 | Obstetrical Progress Note ---
Date of Service June 23, 2025 Assessment & Plan (1) delivery delivered: Pt is s/p section day #2 Pt doing well No complaints Pain adequately controlled with medications Stable vital Stable H/H: 8.2/23.9 Tolerating PO food and Meds Ambulating w/o difficulty + BS, No BM Incision: Clean , dry and Intact Pt wishes to be discharged home Subjective Ambulation: ambulating normally Voiding: no voiding problems Passing Gas:: Yes Diet Tolerance:: clear liquids Lochia:: Small Feeding Type:: breast feeding Review of Systems All systems reviewed & are unremarkable except as noted in HPI & below Physical Exam Constitutional WD/WN, vitals as above well developed and well nourished Eyes PERRL, conjunctivae normal, anicteric sclerae ENMT external ear and nose normal, oropharynx normal Neck trachea midline, no thyromegaly Respiratory normal respiratory effort, lungs clear to auscultation Cardiovascular RRR, no murmur, no edema Chest (Breasts) normal inspection/palpation of breasts Gastrointestinal (Abdomen) normal bowel sounds, soft, nontender, no hepatosplenomegaly Musculoskeletal no cyanosis or clubbing, extremities motor strength 5/5 Skin no rashes, warm and dry + incision (Clean,dry and intact) Neurologic patellar DTR's 2+ bilat, sensation intact Psychiatric A+Ox3, euthymic affect Genitourinary normal external appearance Lymphatic no cervical or axillary lymphadenopathy Results & Data Vital Signs (Past 12 Hours) Vital Signs Temp Pulse Resp BP O2 Del Method 06/23/25 08:00 36.8 C 80 21 110/71 Room Air
== END 2025-06-23 14:00 | disposition home or self-care (01) | DRG 788 ==
LOC: 4S1 07:46 → 4E2 06-21 06:47